=== PATIENT | male | born 1985 | race Caucasian/White ===

== ENCOUNTER 2018-04-13 08:17 | Inpatient (IN) | payer OTHER, SELFPAY ==
[2018-04-13] MEDS ORDERED: Fentanyl 100 MCG/2 ML VIAL ONE ×3 (08:21→13:04)
[2018-04-13] MEDS ORDERED: Adacel (T-DAP) 0.5 ML VIAL ONE (08:21)
[2018-04-13] MEDS ORDERED: CEFAZOLIN 1 GM VIAL ONE (08:26)
[2018-04-13] MEDS ORDERED: Lorazepam 2 MG/ML VIAL ONE (08:40)
[2018-04-13 08:42] LABS: #Basophils 0.1 thou/uL (0.0-0.2); #Eosinphils 0.2 thou/uL (0.0-0.7); #Monocytes 0.6 thou/uL (0.11-0.59); #Neutrophils 4.4 thou/uL (1.40-6.50); %Basophils 1.6 % (0.0-1.0); %Eosinophils 1.9 % (0.0-10.0); %Monocytes 7.4 % (0.0-10.0); %Neutrophils 53.1 % (42.0-75.0); Hemoglobin 15.8 g/dL (14.0-18.0); Mean Corpuscular HGB CONC 32.8 g/dL (32.0-36.0); Mean Corpuscular Hemoglobin 30.8 pg (27.0-31.0); Mean Platelet Volume 8.9 fL (7.4-10.4); Platelet Count 216 thou/uL (130-400); RBC Distribution Width 12.2 % (11.5-14.5); Red Blood Cell (RBC) Count 5.12 mill/uL (4.70-6.10); White Blood Cell (WBC) Count 8.2 thou/uL (4.8-10.8)
[2018-04-13 08:53] LABS: PTT 24.2 SEC (22.9-36.1); Prothrombin Time 13.6 SEC (12.0-14.7)
[2018-04-13 09:01] LABS: ALT (SGPT) 14 U/L (8-55); AST (SGOT) 15 U/L (5-34); Albumin 4.7 g/dL (3.5-5.0); Alkaline Phosphatase 55 U/L (40-150); Anion Gap 12 mmol/L (10-20); BUN (Urea Nitrogen) 16 mg/dL (8.9-20.6); Bilirubin, Total 0.8 mg/dL (0.2-1.2); Calc. Creatinine Clearance 0 mL/min (70-130); Calcium 9.7 mg/dL (7.8-10.44); Carbon Dioxide 25 mmol/L (22-29); Chloride 106 mmol/L (98-107); Estimated GFR-MDRD 72; Globulin 2.7 g/dL (2.4-3.5); Glucose 150 mg/dL (70-105); Potassium 3.1 mmol/L (3.5-5.1); Protein, Total 7.4 g/dL (6.0-8.3); Sodium 140 mmol/L (136-145)
--- NOTE | 2018-04-13 09:07 | RAD ---
CHEST 1 VIEW: HISTORY: Injury. COMPARISON: None. FINDINGS: Lungs are without pneumothorax or effusion. Well-defined round nodule projecting over the right mid lung measuring 1.2 cm. This may be outside the patient and could represent a button. IMPRESSION: A 1.2 cm round density projecting in the right mid hemithorax may be outside of the patient and has t he appearance of a button. Recommend correlation for a button outside the patient. If there is noth ing extrinsic to the patient, a followup CT of the chest nonemergently may be beneficial. POS: [facility]
--- NOTE | 2018-04-13 09:07 | RAD ---
RIGHT HAND 3 VIEWS: Date: 04/13/18 HISTORY: Cut hand on a bandsaw. COMPARISON: None. FINDINGS: There is an open fracture of the middle finger proximal phalanx base, intraarticular, with volar disp lacement of only half shaft width. There is also fracture of the ring finger proximal phalanx head an d neck, intraarticular, with mild palmar angulation. IMPRESSION: 1. Intraarticular fractures of the middle and ring fingers as above. 2. Radiopaque debris along the medial aspect of the soft tissues of the small finger metatarsophalan geal joint may be outside the patient. POS: [facility]
[2018-04-13] MEDS ORDERED: Gentamicin Sulfate 80 MG in Premix Bag 1 BAG IVPB SCH (09:15)
[2018-04-13] MEDS ORDERED: Penicillin G Potassium 3 MILL.UNITS in Sodium Chloride 0.9% 100 ML IVPB SCH (09:15)
[2018-04-13 11:42] VITALS: BMI 22.4
[2018-04-13] MEDS ORDERED: Midazolam HCl 2 mg/2 ml Vial ONE (13:04)
[2018-04-13] MEDS ORDERED: Thrombin 5000 UNITS/5 ML VIAL ONE (13:07)
[2018-04-13] MEDS ORDERED: Bupivacaine PF 0.5% 30 ML VIAL ONE (13:07)
[2018-04-13] MEDS ORDERED: Bacitracin Zinc Ointment 30 gm TUBE ONE (13:07)
[2018-04-13] MEDS ORDERED: Lidocaine 1% (PF) 30 ML VIAL ONE (13:07)
[2018-04-13] MEDS ORDERED: Lidocaine 1% PF 5 ML VIAL ONE (13:36)
[2018-04-13] MEDS ORDERED: Succinylcholine Chloride 20 MG/ML 10 ml SYRINGE FS ONE (13:36)
[2018-04-13] MEDS ORDERED: Ketorolac Tromethamine 30 MG/ML VIAL ONE (13:36)
[2018-04-13] MEDS ORDERED: PROPOFOL 200 MG/20 ML VIAL ONE (13:36)
[2018-04-13] MEDS ORDERED: Ondansetron PF 4 MG/2 ML Vial ONE (13:36)
[2018-04-13] MEDS ORDERED: Metoclopramide HCl 10 MG/2 ML VIAL ONE (13:36)
[2018-04-13] MEDS ORDERED: Glycopyrrolate 0.2 MG/ML 5 ML SYRINGE ONE (13:36)
[2018-04-13] MEDS ORDERED: Dexamethasone 20 MG/5 ML VIAL ONE (13:36)
[2018-04-13] MEDS ORDERED: Sodium Chloride 0.9% 50 ML ONE (14:01)
[2018-04-13] MEDS ORDERED: Acetaminophen 325 MG TAB PO PRN (16:16)
[2018-04-13] MEDS ORDERED: Ondansetron PF 4 MG/2 ML Vial IV PRN (16:16)
[2018-04-13] MEDS ORDERED: Acetaminophen/Codeine 30-300mg Tablet PO PRN (16:16)
[2018-04-13] MEDS ORDERED: Milk Of Magnesia 30 ML UDCUP PO PRN (16:16)
[2018-04-13] MEDS ORDERED: Bisacodyl 10 MG SUPP PR PRN (16:16)
[2018-04-13] MEDS ORDERED: Meperidine HCl/PF 25 MG/ML VIAL IM PRN (16:19)
[2018-04-13] MEDS ORDERED: Ketorolac Tromethamine 30 MG/ML VIAL IVP PRN (16:19)
[2018-04-13] MEDS ORDERED: Meperidine HCl/PF 25 MG/ML VIAL ONE (16:24)
[2018-04-13] MEDS ORDERED: TETANUS AND DIPHTHERIA TOX/PF 0.5 ML DISP.SYRIN IM SCH (16:30)
[2018-04-13] MEDS ORDERED: RENALLY ADJUST ABX IVPB PRN (17:00)
[2018-04-13] MEDS: Ketorolac Tromethamine 30 MG/ML VIAL IVP SCH ×2 (17:55→23:36)
[2018-04-13] MEDS: Vancomycin HCl 1 GM in Premix Bag 1 BAG IVPB SCH (17:56)
--- NOTE | 2018-04-13 20:44 | RAD ---
INTRAOPERATIVE IMAGING OF THE RIGHT MIDDLE FINGER 04/13/18 COMPARISON: 04/13/18 HISTORY: ORIF. FINDINGS: provided images demonstrate obliquely oriented fracture involving distal aspect of fourth proximal ph alanx. There is also a fracture at the base of the third proximal phalanx. Percutaneous pins traverse the fracture involving the distal aspect of the fourth proximal phalanx and two screws traverse the fracture at the base of the third proximal phalanx. IMPRESSION: ORIF as above. POS: [facility]
[2018-04-13] MEDS: Aspirin 81 mg Enteric Coated Tablet PO SCH (23:36)
[2018-04-14] MEDS: Vancomycin HCl 1 GM in Premix Bag 1 BAG IVPB SCH ×2 (05:24→18:24)
[2018-04-14] MEDS: Ketorolac Tromethamine 30 MG/ML VIAL IVP SCH ×3 (05:28→18:23)
[2018-04-14 05:37] LABS: #Neutrophils 12.1 thou/uL (1.40-6.50); %Basophils 0.3 % (0.0-1.0); %Eosinophils 0.1 % (0.0-10.0); %Lymphocytes 13.2 % (21.0-51.0); %Monocytes 6.5 % (0.0-10.0); %Neutrophils 79.8 % (42.0-75.0); Mean Corpuscular HGB CONC 33.3 g/dL (32.0-36.0); Mean Corpuscular Hemoglobin 31.3 pg (27.0-31.0); Mean Platelet Volume 8.6 fL (7.4-10.4); Platelet Count 170 thou/uL (130-400); RBC Distribution Width 12.2 % (11.5-14.5); Red Blood Cell (RBC) Count 4.46 mill/uL (4.70-6.10); White Blood Cell (WBC) Count 15.1 thou/uL (4.8-10.8)
[2018-04-14 05:46] LABS: ALT (SGPT) 11 U/L (8-55); AST (SGOT) 14 U/L (5-34); Albumin 3.9 g/dL (3.5-5.0); Alkaline Phosphatase 45 U/L (40-150); Anion Gap 13 mmol/L (10-20); BUN (Urea Nitrogen) 12 mg/dL (8.9-20.6); Bilirubin, Total 0.7 mg/dL (0.2-1.2); Calc. Creatinine Clearance 101 mL/min (70-130); Carbon Dioxide 21 mmol/L (22-29); Chloride 108 mmol/L (98-107); Estimated GFR-MDRD 88; Globulin 2.2 g/dL (2.4-3.5); Glucose 110 mg/dL (70-105); Potassium 3.8 mmol/L (3.5-5.1); Protein, Total 6.1 g/dL (6.0-8.3); Sodium 138 mmol/L (136-145)
[2018-04-14] MEDS: Aspirin 81 mg Enteric Coated Tablet PO SCH ×2 (08:00→20:18)
[2018-04-14] MEDS ORDERED: Bacitracin Zinc Ointment 30 gm TUBE ONE (12:03)
[2018-04-14] MEDS ORDERED: Bupivacaine PF 0.5% 30 ML VIAL ONE (12:03)
[2018-04-14] MEDS ORDERED: Fentanyl 100 MCG/2 ML VIAL ONE ×2 (12:54→15:26)
[2018-04-14] MEDS ORDERED: PROPOFOL 200 MG/20 ML VIAL ONE (13:09)
[2018-04-14] MEDS ORDERED: Glycopyrrolate 0.2 MG/ML 5 ML SYRINGE ONE (13:09)
[2018-04-14] MEDS ORDERED: Dexamethasone 20 MG/5 ML VIAL ONE (13:09)
[2018-04-14] MEDS ORDERED: ePHEDrine/0.9% NaCl/PF SYRINGE 50 mg/10 ml ONE (13:09)
[2018-04-14] MEDS ORDERED: Ondansetron PF 4 MG/2 ML Vial ONE (13:09)
[2018-04-14] MEDS ORDERED: Ketorolac Tromethamine 30 MG/ML VIAL ONE (13:09)
[2018-04-14] MEDS ORDERED: Lidocaine 1% PF 5 ML VIAL ONE (13:09)
[2018-04-14] MEDS ORDERED: Promethazine HCl 25 MG/ML VIAL IM PRN (16:33)
[2018-04-14] MEDS ORDERED: PACU-Morphine 4MG/ML VIAL SLOW IVP PRN (16:33)
[2018-04-14] MEDS ORDERED: Promethazine HCl 25 MG/ML VIAL SLOW IVP PRN (16:33)
[2018-04-14] MEDS ORDERED: HYDROmorphone 2 MG/ML VIAL SLOW IVP PRN (16:33)
[2018-04-14] MEDS ORDERED: Ondansetron HCl/PF 4 MG/2 ML Vial IVP PRN (16:33)
[2018-04-14] MEDS: HYDROcodone/Acetaminophen 5/325 mg Tablet PO PRN (20:16)
[2018-04-14] MEDS: Pregabalin 75 MG CAP PO SCH (20:18)
[2018-04-14] MEDS ORDERED: Morphine 2 MG/ML SYRINGE IVP PRN (21:13)
[2018-04-14] MEDS: Gentamicin 80 MG/100 ML BAG IVPB SCH (21:22)
[2018-04-15] MEDS: HYDROcodone/Acetaminophen 5/325 mg Tablet PO PRN ×2 (04:25→11:15)
[2018-04-15 04:34] LABS: #Lymphocytes 1.7 thou/uL (1.20-3.40); #Monocytes 0.5 thou/uL (0.11-0.59); #Neutrophils 7.6 thou/uL (1.40-6.50); %Basophils 0.5 % (0.0-1.0); %Eosinophils 0.1 % (0.0-10.0); %Lymphocytes 17.3 % (21.0-51.0); %Monocytes 5.4 % (0.0-10.0); %Neutrophils 76.7 % (42.0-75.0); Mean Corpuscular HGB CONC 33.2 g/dL (32.0-36.0); Mean Corpuscular Hemoglobin 31.6 pg (27.0-31.0); Mean Corpuscular Volume 95.2 fL (78.0-98.0); Mean Platelet Volume 8.8 fL (7.4-10.4); Platelet Count 131 thou/uL (130-400); RBC Distribution Width 12.3 % (11.5-14.5); White Blood Cell (WBC) Count 9.9 thou/uL (4.8-10.8)
[2018-04-15 04:59] LABS: Vancomycin, Trough 2.6 ug/mL
[2018-04-15] MEDS: Gentamicin 80 MG/100 ML BAG IVPB SCH (06:05)
[2018-04-15] MEDS: Aspirin 81 mg Enteric Coated Tablet PO SCH (09:58)
[2018-04-15] MEDS: Pregabalin 75 MG CAP PO SCH (09:58)
[2018-04-15 11:39] VITALS: BP 102/65; TEMP 97.7
--- NOTE | 2018-04-16 15:28 | OP ---
DATE OF PROCEDURE: 04/13/2018 PREOPERATIVE DIAGNOSES: 1. Right ring finger, open proximal phalanx neck fracture, intra-articular with bone loss. 2. Extensor laceration, zones 3 and 4. 3. Open proximal phalangeal joint. 4. Intrinsic laceration. 5. Digital nerve laceration. POSTOP FINDINGS: 1. Marked amount of soft tissue contamination of multiple particles to include fabric and dirt with minimal bone contamination. Bone loss seen on the proximal aspect of the distal neck phalanx fractur e/osteochondral time. 2. At the right middle finger: A. Open proximal phalanx intra-articular fracture base of the proximal phalanx with intra-articular exposure. B. Extensive laceration. C. Open metacarpophalangeal joint. D. Digital nerve laceration. E. Intrinsic laceration. PROCEDURES PERFORMED: 1. At the right finger: A. Debridement of material associated with open fracture. B. Debridement of open joint wound. C. Debridement of wound, complex on both sides metacarpophalangeal joint. D. C-arm supervision. 2. At the right middle finger: A. Debridement of material associated with open fracture. B. Debridement of deep wound and joint, metacarpophalangeal joint. C. Open reduction and internal fixation of proximal phalanx fracture. D. C-arm supervision. SPECIMEN FINDINGS: Multiple contaminations with cloth and particles and dirt. ESTIMATED BLOOD LOSS: 20 mL. TOURNIQUET TIME: 80 minutes. FINAL FINDINGS: Gross deep soft tissue contamination that was moderate and one small spot severe alina ugh that we did not want to close the wound. Bone contamination minimum, so we performed bone fixati on to stabilize the area as well and circulation was intact at the end of procedure. The tourniquet was deflated at both digits. INDICATION: The patient had a saw injury at approximately 08:30 at the day of admission and his work site was evacuated. He underwent IV antibiotics with Dr. Jay Rachel evaluated. The patient fe lt, he had a grade 2 open fracture should be operated within 8 hours of the injury and this was accom plished. Intraoperatively, we discovered too much contamination to do definitive soft tissue coverag e but had to do bone work in order to stabilize the area. DESCRIPTION OF PROCEDURE: After a successful timeout, the patient had the limb prepped and draped. Tourniquet was inflated at 200 mmHg pressure after exsanguination of the limb. We then extended the incision 1 cm distal and proximal, but it was wide enough to incision, we had excellent visualization . We saw multiple dirt, particular matter, cold particles, and I saw the contamination of soft tissu e, minimal contamination of the bone, so I have to debride the material associated with open fracture s to include some marrow, debrided the joint of the metacarpophalangeal joint of the middle finger an d the proximal phalangeal joint of the ring finger, we irrigated with 5 liters of normal saline and P ulsavac pressure. We then had to do more debridement of skin, soft tissue while the bone remained re latively clean and we underwent another 5 liters of irrigation after this debridement. Debridement i ncluded excisional technique, combination of tenotomy scissors, small Crile, Adson pickups, and curet rasheed for instrumentation and depth was down to and including the bone where we could actually visualiz ed deep the palmar surfaces on the inside of the web space between the two digital laceration with di gital nerve injury to both sides of the third web space. After this was accomplished, which was a se cond debridement of all material, we then irrigated with 5 liters of normal saline, Pulsavac pressure with antibiotics inside and additional 5 liters without antibiotics. Still we could not get a clean enough to feel safe to closing the bone joint, so we did not perform the definitive closure tendon w ork or joint closure. We then performed all these debridements, brought C-arm to the field, reduced the fracture on the bas e of the middle finger, and then held in anatomic position with a lag screw technique using 1-5 screw s. C-arm confirm excellent position, no malrotation seen clinically. We then performed a good reduc tion that much smaller , was a slight osteochondral fracture from the running down the radial si de of the index finger with marked malrotation. After debridement was completed, using the same tech nique used for the ring finger for long finger fracture, we planned to use the best fit method admit to get the joint reduced because of so much bone loss at the cortex making malrotation in the frontal plane highly likely. Once we corrected for this, obtained adequate height, we decided to pin this w ith a K-wire, as the bone edge was so small that it might not hold hold a screw. Then, we finished t he irrigation, inflated the tourniquet, and decided that the indications for closure were not there t eleanor because the wound environment was not clean enough, so we decided to come back in 24 to 36 hours for debridement, irrigation, and definitive tendon nerve repair.
--- NOTE | 2018-04-17 08:19 | OP ---
PREOPERATIVE DIAGNOSES: Right middle finger open fracture, proximal phalanx, right middle finger ope n joint, metacarpophalangeal joint, right middle finger zone 4 extensor tendon laceration, right midd le finger digital nerve laceration, total 10 cm wound entire hand and digits at the right ring finger . POSTOPERATIVE DIAGNOSES: Right ring finger proximal phalanx distal third neck open fracture, right r ing finger open proximal phalangeal joint, right ring finger extensor laceration, zone 3, right ring finger radial digital nerve and artery laceration, both wounds show minimal subcutaneous contaminatio n as compared to yesterday and were nearly clean and could be made clean by debridement of the wound edges and removal of small amount of debris. Minimum amount of debris found deep around the digital nerve laceration also removed. PROCEDURES PERFORMED: I. A 10-cm wound closure and debridement of the wound using the following techniques: A. Excisional technique. B. Wound edges were debrided 1 mm circumferentially using a combination of [place] blade, tenotom y scissors, 11 blade knife, Adson; subcutaneous and deep, we added a curet, as well as on th e bone and the joint, we added a Switchback as well as Adson used to strip picker individual debris s een under magnification to include microscope. C. The depth was down to including the fracture on the proximal phalanx neck and the joint itsel f. Metacarpophalangeal joint of the middle finger and proximal phalangeal joint of the ring finger and finally there was only minimal contamination described above. II. Application of drain. III. Application of splint. I. Ring finger procedure: A. Debridement of material associated open fracture. B. Debridement of open joint, proximal phalangeal joint. C. Joint capsule repair. D. Zone 4 extensor tendon repair. E. Intrinsic repair. F: Retinacular repair. G: Microscopic digital nerve repair. H. Microscopic digital nerve neuroplasty. II. Ring finger. A. Debridement of open fracture, proximal mid phalanx neck at the proximal phalangeal joint. B. Debridement of open proximal phalangeal joint. C. Collateral ligament repair, radial aspect of the distal proximal phalanx. D. Extensor tendon repair, zone 3. E. Intrinsic repair. F. Microscopic radial digital nerve repair. G. Microscopic digital nerve neuroplasty. TOURNIQUET TIME: 135 minutes (63 minutes inflated to 250 mmHg pressure, 20 minutes now completely an d reinflation is 72 minutes at 250 mmHg pressure). BLOOD LOSS: 20 mL INJECTABLE: 30 mL total of 0.5% Marcaine (20 before the incision was made and 10 at the end of the procedure once incision was closed). The digit was pink with one second capillary refill of all digits include . INDICATIONS: Staged wound management after indeed fracture care was fairly definitive, except we did debride that area today and he had extensive debridement both yesterday and today because of contami nation was brought back approximately 24 hours after surgery after getting IV antibiotics and rest. DESCRIPTION OF PROCEDURE: After successful general endotracheal, limb was prepped and draped. A 10 cm wound was evaluated, and he had too much bleeding to perform procedures with the tourniquet deflat ed, so we exsanguinated the limb and inflated the tourniquet to 250 mmHg pressure. We then injected the wound with 10 mL, then 5 mL of each of the metacarpophalangeal joint digital nerve blocks accompl ished without abnormality. We then began by debriding as listed above the skin and subcutaneous tiss ue, then the tendon surfaces that were new surface 1 mm resection and then finally inspecting and jade riding the joint and periarticular region and the fracture at the ring finger, proximal phalanx neck as described (deep debridement) see above. Then, once we have finished debridement of open fractures and debridement of joints as well as movement all material associated open fracture, we approached t he fingers individually first with the middle finger. We made extensor tendon laceration match, clos ed the laceration with interrupted 3-0 Prolene [id number] x5, then we repaired the intrinsics on the middle finger ulnar side which were cut using 4-0 nylon in an interrupted [id number] patter n as well as retinacular repair using kmvxnf-py-illar pattern Prolene 4-0. Once we had done this, we kept the finger extended throughout this time. It would be for the rest of procedure of the PIP joint. We returned our attention to the ring finger where we already done the debridement of material associated open fracture as well as open joint and had finished the 5 L irrig ation before we began by first repairing the collateral ligament which was a mid substance tear using multiple [id number] and 4-0 Prolene. Then, we performed extensor tendon repair, zone 3 with a 3-0 Prolene pgonab-ux-roefj interrupted using the same technique and we used on the other fingers, a zone 4 extensor tendon repair. Now, we kept the finger in 0. Intrinsics were repaired to include t he terminal end of the oblique, lateral and sagittal bands and retinaculum did not have to be repaire d on this side as had been done on the middle finger because of the mid to distal aspect of this, but the intrinsic was repaired. Now, we deflated the tourniquet, obtained hemostasis. We then began cl osure which was accomplished except for placing the drain using interrupted 4-0 nylon in a simple pat tern. Placed a drain prior to separate stab wound, but did not hook to reservoir because it had mor e work to do. We reinflated the tourniquet after exsanguinating the limb to 250 mmHg pressure. At t his time, we made a zigzag incision where we identified the digital nerve laceration to be about the webspace between the ring and long finger or more like the ulnar long finger and the radial ring fing er. Indeed, we made a zigzag incision to protect the neurovascular bundles on each side identified n eurovascular bundles of the laceration were complete. With a slight debridement of the edges of the nerves, we then approached the middle finger first, was able to repair the nerve with the PIP joint i n approximately -15 degrees and full extension without undue tension, we straightened it and there wa s no undue tension and did not need a conduit. We then had used 8-0 Nurolon effectively with 4 sutur es in the spot. Microscope had been brought in the field to perform this digital nerve repair, we had to perform neur oplasty of both the nerves and sure which one was cut and where it was cut to see if we will need cassius t using nerve conduit because of the motorized nature of this injury. The digital artery and nerve on the ring fingers were then undergo neuroplasty and dissection until w e found the digital nerve laceration. Then, under microscope, the neuroplasty completed under micros cope, we placed 4 sutures in this nerve branch to accomplish admission of nerve repair microscopic. The microscope was removed, release of tourniquet, a final time, obtain hemostasis. We then closed t he incision over the hand, pinned and final debridement which was accomplished using interrupted 4-0 nylon in a simple pattern. The patient was taken to the operating room with pink digits 1 second ref ill, palmar splint with the MP joints at -15 and PIP joints still and there is no evidence of anesthe tic or operative complication.
== END 2018-04-15 13:30 | disposition home or self-care (01) | DRG 501 ==
LOC: ERS 08:17 → SURG B 08:50
PROVIDERS: ADMIT Orthopaedic Surgery Hand Surgery; ATTEND Orthopaedic Surgery Hand Surgery
PROC: 0PST04Z Reposition Right Finger Phalanx with Internal Fixation Device, Open Approach (ICD-10-PCS; principal; 2018-04-13)
PROC: 0MQ70ZZ Repair Right Hand Bursa and Ligament, Open Approach (ICD-10-PCS; 2018-04-13)
PROC: 0PBT0ZZ Excision of Right Finger Phalanx, Open Approach (ICD-10-PCS; 2018-04-13)
PROC: 0PBP0ZZ Excision of Right Metacarpal, Open Approach (ICD-10-PCS; 2018-04-13)
PROC: 01Q40ZZ Repair Ulnar Nerve, Open Approach (ICD-10-PCS; 2018-04-14)
PROC: 0LQ70ZZ Repair Right Hand Tendon, Open Approach (ICD-10-PCS; 2018-04-14)
PROC: 01Q60ZZ Repair Radial Nerve, Open Approach (ICD-10-PCS; 2018-04-14)
DX: S62.614B Displaced fracture of proximal phalanx of right ring finger, initial encounter for open fracture (principal); S62.394B Other fracture of fourth metacarpal bone, right hand, initial encounter for open fracture; S62.392B Other fracture of third metacarpal bone, right hand, initial encounter for open fracture; S66.522A Laceration of intrinsic muscle, fascia and tendon of right middle finger at wrist and hand level, initial encounter; S62.612B Displaced fracture of proximal phalanx of right middle finger, initial encounter for open fracture; S64.492A Injury of digital nerve of right middle finger, initial encounter; W31.2XXA Contact with powered woodworking and forming machines, initial encounter; Y93.89 Activity, other specified; Y92.69 Other specified industrial and construction area as the place of occurrence of the external cause; Y99.0 Civilian activity done for income or pay
CPT/HCPCS: 36415; 71045; 76001; 80053; 80202; 83605; 85025; 85610; 85730; 86850; 86900; 86901; 90471; 90715; 93005; 96365; 96375; C1713; J0690; J1100; J1580; J1885; J2001; J2060; J2175; J2250; J2270; J2405; J2540; J2704; J2765; J3010; J3370; J3490; J7050; S0020

== ENCOUNTER 2018-07-18 12:00 | Day surgery (SDC) | payer OTHER ==
[2018-07-17 12:52] VITALS: BMI 21.9
[2018-07-18 13:07] LABS: #Basophils 0.1 thou/uL (0.0-0.2); #Eosinphils 0.1 thou/uL (0.0-0.7); #Lymphocytes 1.9 thou/uL (1.20-3.40); #Monocytes 0.5 thou/uL (0.11-0.59); #Neutrophils 2.5 thou/uL (1.40-6.50); %Basophils 1.4 % (0.0-1.0); %Eosinophils 1.7 % (0.0-10.0); %Lymphocytes 37.7 % (21.0-51.0); %Monocytes 9.5 % (0.0-10.0); %Neutrophils 49.8 % (42.0-75.0); Hemoglobin 15.2 g/dL (14.0-18.0); Mean Corpuscular HGB CONC 33.5 g/dL (32.0-36.0); Mean Corpuscular Hemoglobin 31.9 pg (27.0-31.0); Mean Corpuscular Volume 95.3 fL (78.0-98.0); Mean Platelet Volume 8.3 fL (7.4-10.4); Platelet Count 160 thou/uL (130-400); RBC Distribution Width 12.2 % (11.5-14.5); Red Blood Cell (RBC) Count 4.77 mill/uL (4.70-6.10)
[2018-07-18] MEDS ORDERED: Bupivacaine PF 0.5% 30 ML VIAL ONE (13:36)
[2018-07-18] MEDS ORDERED: Lidocaine 1% (PF) 30 ML VIAL ONE (13:36)
[2018-07-18] MEDS ORDERED: Bacitracin Zinc Ointment 30 gm TUBE ONE (13:37)
[2018-07-18] MEDS ORDERED: Thrombin 5000 UNITS/5 ML VIAL ONE (13:37)
[2018-07-18] MEDS ORDERED: Midazolam HCl 2 mg/2 ml Vial ONE (14:37)
[2018-07-18] MEDS ORDERED: Fentanyl 100 MCG/2 ML VIAL ONE (14:37)
[2018-07-18] MEDS ORDERED: Ondansetron PF 4 MG/2 ML Vial ONE (15:58)
[2018-07-18] MEDS ORDERED: Lidocaine 1% PF 5 ML VIAL ONE (15:58)
[2018-07-18] MEDS ORDERED: PROPOFOL 200 MG/20 ML VIAL ONE (15:58)
[2018-07-18] MEDS ORDERED: Ketorolac Tromethamine 30 MG/ML VIAL ONE (16:08)
--- NOTE | 2018-07-18 17:37 | RAD ---
FLUOROSCOPIC IMAGES OF THE RIGHT RING FINGER: 07/18/18 INDICATION: History of hardware removal. COMPARISON: Prior exam dated 04/13/18. FINDINGS: Since the comparison study, there has been interval removal of the percutaneous pins involving the ri ng finger proximal phalangeal neck fracture. Fracture still persists involving the ring finger proxim al phalanx. The instrumented long finger proximal phalangeal base fracture is unchanged in position w ith some interval healing. Dedicated right hand radiographs are recommended to evaluate the extent of healing. IMPRESSION: Intraoperative C-arm images for removal of hardware from the right fourth digit proximal phalangeal f racture. POS: [facility]
--- NOTE | 2018-07-19 10:38 | OP ---
DATE OF PROCEDURE: 07/18/2018 PREOPERATIVE DIAGNOSIS: Right ring finger proximal phalanx neck subchondral fracture, 3 months old, with painful now deep implant K-wires that are crossed. POSTOPERATIVE DIAGNOSES: 1. Right ring finger proximal phalanx neck subchondral fracture, 3 months old, with painful now deep implant K-wires that are crossed. 2. Joint contracture. 3. No evidence of fracture; gross motion after wires removing, any plane and with stretch. PROCEDURES PERFORMED: 1. Manipulation of the joint from 110 degrees of flexion to -5 extension. 2. Removal of K-wires deep under general anesthesia using open incision. 3. C-arm supervision. COMPLICATIONS: None. TOURNIQUET TIME: 8 minutes. INDICATIONS: The patient had a saw entered in both the long finger at the base of the proximal phalanx and the ipsilateral right ring finger at the neck of the proximal phalanx near the PIP joint. We then in order to maximize joint healing, over reduced the joint part to make it anatomic approximately 0.5 mm wide for loss of bone tissue. We crossed K-wires just because the fragment was fragile, and it has now healed radiographically but, there is fear now that the joint is contracted with loss of active flexion, and that if we remove the wires, the intra-articular portion may not be healed and the fracture may move. Thus, a manipulation is indicated for two reasons and the wire for one. DESCRIPTION OF PROCEDURE: After successful general LMA technique, the limb was prepped and draped. Time-out was done appropriately. We then gave the patient 10 mL of 0.5% Marcaine block at metacarpophalangeal joint level. We then proceeded with the limb exsanguination and tourniquet to 250 mmHg pressure was maximized. We brought the C-arm to the field, identified the . First, we made a 5-mm incision, over dissected out both K-wires and removed them with a heavy needle camp. We then manipulated the finger from -15 with passive PIP extension to -5 extension and from 70 degrees of flexion to 105 degrees PIP joint, and the fracture remained stable under fluoro in both planes. Tourniquet was deflated. Hemostasis was obtained. Closed the wound with interrupted 4-0 nylon simple pattern, and the patient left the operating room without evidence of anesthetic or operative complication. Job ID: [id number]
== END 2018-07-18 17:54 | disposition home or self-care (01) ==
LOC: SDC 12:00
PROVIDERS: ATTEND Orthopaedic Surgery Hand Surgery
PROC: 0RPW0JZ Removal of Synthetic Substitute from Right Finger Phalangeal Joint, Open Approach (ICD-10-PCS; principal; 2018-07-18)
PROC: 0RNWXZZ Release Right Finger Phalangeal Joint, External Approach (ICD-10-PCS; principal; 2018-07-18)
DX: T84.84XA Pain due to internal orthopedic prosthetic devices, implants and grafts, initial encounter (principal); M24.541 Contracture, right hand; M79.2 Neuralgia and neuritis, unspecified
CPT/HCPCS: 36415; 76000; 85025; 85652; J1885; J2001; J2250; J2405; J2704; J3010; J3490; S0020